=== PATIENT | female | born 1985 | race Caucasian/White ===

== ENCOUNTER → 2019-04-30 | Day surgery (SDC) | payer BC ==
[2019-04-23 13:28] VITALS: BP 134/84
[~2019-04-30] VITALS: Ht 162.5 cm; Wt 108.4 kg
[~2019-04-30] MED LIST: AMOXICILLIN500 MG PO; DIFLUCAN150 MG PO; Motrin,Rufen800 MG PO; NORCO 5-325 TA1 EACH PO; PRINIVIL20 M1 PO; VICODIN ES 7501 TAB PO
[2019-04-30 10:55] VITALS: BP 145/83
[2019-04-30 11:11] VITALS: BP 145/93
[2019-04-30 11:24] VITALS: BP 143/85
[2019-04-30 11:42] VITALS: BP 158/98
[2019-04-30 11:57] VITALS: BP 166/90
[2019-04-30 12:12] VITALS: BP 152/89
== END | disposition home or self-care (01) ==
LOC: SDC 04-23 13:15
DX: Z30.2 Encounter for sterilization (principal); I10 Essential (primary) hypertension; G43.909 Migraine, unspecified, not intractable, without status migrainosus; Z79.899 Other long term (current) drug therapy

== ENCOUNTER 2022-01-20 17:31 | Emergency (ER) | payer BC ==
[~2022-01-20] VITALS: Ht 162.5 cm; Wt 103.4 kg
[2022-01-20 19:16] LABS: BILIRUBIN Negative (Negative); BLOOD Negative (Negative); CLARITY Clear (Clear); COLOR Yellow (Yellow); GLUCOSE Negative (Negative); KETONE Negative (Negative); LEUKO ESTERASE Negative (Negative); NITRITE Negative (Negative); SPECIFIC GRAVITY 1.015 (1.001-1.030); UROBILINOGEN 0.2 E.U./dl (0.0-1.0)
[2022-01-20 19:28] LABS: BACTERIA 4+; RBC 0-2 rbc/hpf (0-2)
[2022-01-20 19:46] LABS: BASO # 0.1 10*3/uL (0.0-0.1); BASO % 0.5 % (0.0-1.0); EOS # 0.3 10*3/uL (0.0-0.4); EOS % 2.4 % (1.0-4.0); HEMATOCRIT 36.3 % (37.0-47.0); LYMPH # 3.5 10*3/uL (1.3-4.4); LYMPH % 28.6 % (27.0-41.0); MEAN CELL VOLUME 69.5 fl (81.0-99.0); MEAN CORPUSCULAR HGB 21.5 pg (27.0-31.0); MEAN CORPUSCULAR HGB CONC 30.9 g/dl (33.0-37.0); MEAN PLATELET VOLUME 9.2 fl (9.6-12.3); MONO % 7.8 % (3.0-9.0); NEUT # 7.4 10*3/uL (2.3-7.9); NEUT % 60.1 % (47.0-73.0); PLATELET COUNT AUTOMATED 687 10*3/uL (130-400); RED BLOOD COUNT 5.22 10*6/uL (4.10-5.10); RED CELL DISTRI WIDTH 15.9 % (0-14.5); WHITE BLOOD COUNT 12.2 10*3/uL (4.8-10.8)
[2022-01-20 20:05] LABS: ALKALINE PHOSPHATASE 96 U/L (45-117); BUN 10 mg/dl (7-24); CHLORIDE 102 mmol/L (98-107); CREATININE 0.73 mg/dL (0.55-1.02); LIPASE 68 U/L (73-393); POTASSIUM 3.1 mmol/L (3.5-5.1); SGOT/AST 21 IU/L (3-35); SGPT/ALT 28 U/L (12-78); SODIUM 137 mmol/L (136-145)
== END 2022-01-20 20:27 | disposition home or self-care (01) ==
LOC: ED 17:31
PROVIDERS: Emergency Medicine; Internal Medicine
DX: R10.31 Right lower quadrant pain (principal); Z98.890 Other specified postprocedural states